=== PATIENT | male | born 1980 | race Caucasian/White ===

== ENCOUNTER → 2022-01-24 | Outpatient (CLI) | payer OTHER ==
[~2022-01-24] MED LIST: COLA100C2 OR; No Historical Meds; PERC5TAB8 OR
== END ==
LOC: M SOG 08:25
PROVIDERS: ATTEND Orthopaedic Surgery Hand Surgery
DX: M79.641 Pain in right hand (principal)

== ENCOUNTER → 2022-02-12 | Outpatient (CLI) | payer OTHER ==
[~2022-02-12] MED LIST changes: +PROHANCE 279.3MG/ML 15ML VIAL ONE; +PROHANCE 279.3MG/ML 5ML VIAL ONE
== END ==
LOC: M PLAIMG 14:02
PROVIDERS: ATTEND Orthopaedic Surgery Hand Surgery
DX: M79.641 Pain in right hand (principal); S63.641A Sprain of metacarpophalangeal joint of right thumb, initial encounter; X58.XXXA Exposure to other specified factors, initial encounter; Y92.9 Unspecified place or not applicable; Y99.9 Unspecified external cause status; Y93.9 Activity, unspecified; M67.441 Ganglion, right hand
CPT/HCPCS: 73220; A9576

== ENCOUNTER → 2022-04-20 | Outpatient (CLI) | payer OTHER ==
[~2022-04-20] MED LIST changes: -PROHANCE 279.3MG/ML 15ML VIAL ONE; -PROHANCE 279.3MG/ML 5ML VIAL ONE; +ROSU10TA6 PO; +VITMTA PO
== END ==
LOC: M LABSMTC 09:30
PROVIDERS: ATTEND Anesthesiology
DX: Z01.812 Encounter for preprocedural laboratory examination (principal); Z20.822 Contact with and (suspected) exposure to COVID-19

== ENCOUNTER 2022-04-25 06:11 | Day surgery (SDC) | payer OTHER ==
[~2022-04-25] VITALS: Ht 180.3 cm; Wt 97.1 kg
[2022-04-25] MEDS ORDERED: BUPIVACAINE HCL 0.25% 30ML VIAL As Ordered ONE (07:14)
[2022-04-25] MEDS ORDERED: ceFAZolin 2 GM/D5W 50 ML IV BAG (J0690 PER 500MG) As Ordered ONE (07:30)
[2022-04-25] MEDS ORDERED: dexameTHASONE 4 MG/ML 1ML VIAL (J1100 PER 1MG) As Ordered ONE (07:41)
[2022-04-25] MEDS ORDERED: propofoL 200 MG/20 ML VIAL As Ordered ONE (07:41)
[2022-04-25] MEDS ORDERED: ONDANSETRON 4MG 2ML VIAL As Ordered ONE (07:41)
[2022-04-25] MEDS ORDERED: METOCLOPRAMIDE INJ 10MG/2ML VIAL (J2765 PER 1) As Ordered ONE (07:41)
[2022-04-25] MEDS ORDERED: fentaNYL 100 MCG/2 ML INJECTION As Ordered ONE (07:41)
[2022-04-25] MEDS ORDERED: LIDOCAINE 2% 100MG/5ML SDV (FOR ANES.) As Ordered ONE (07:41)
[2022-04-25] MEDS ORDERED: MIDAZOLAM INJ 2MG/2ML VIAL (J2250 PER 1MG) As Ordered ONE (07:41)
[2022-04-25] MEDS ORDERED: KETOROLAC 60MG 2ML VIAL As Ordered ONE (07:41)
[2022-04-25] MEDS ORDERED: ACETAMINOPHEN 1000MG 100ML IV BAG As Ordered ONE (07:43)
[2022-04-25] MEDS ORDERED: LR 1,000 ML IV SCH ×4 (07:55→08:40)
[2022-04-25] MEDS ORDERED: BACITRACIN OINTMENT 30GM TUBE As Ordered ONE (08:17)
[2022-04-25] MEDS ORDERED: fentaNYL 100 MCG/2 ML INJECTION IV PRN ×2 (08:40)
[2022-04-25] MEDS ORDERED: oxyCODONE 5MG TAB PO PRN ×2 (08:40)
[2022-04-25] MEDS ORDERED: ONDANSETRON 4MG 2ML VIAL IV PRN ×2 (08:40)
[2022-04-25] MEDS ORDERED: MORPHINE 2 MG/ML 1ML VIAL IV PRN ×2 (08:40)
[2022-04-25 09:45] VITALS: BP 130/70
== END 2022-04-25 10:02 | disposition home or self-care (01) ==
LOC: M SDC 06:11
PROVIDERS: ATTEND Orthopaedic Surgery Hand Surgery
DX: M67.441 Ganglion, right hand (principal); I10 Essential (primary) hypertension; E78.00 Pure hypercholesterolemia, unspecified; R73.03 Prediabetes; G47.33 Obstructive sleep apnea (adult) (pediatric); Z87.891 Personal history of nicotine dependence; Z79.899 Other long term (current) drug therapy
CPT/HCPCS: 26160; J0131; J0690; J1100; J1885; J2250; J2405; J2765; J3010